=== PATIENT | female | born 1985 | race Caucasian/White ===

== ENCOUNTER 2017-02-18 07:28 | Inpatient (IN) | payer OTHER ==
[~2017-02-18] VITALS: Ht 175.3 cm; Wt 117.4 kg
[2017-02-18 07:30] VITALS: O2SAT 97
[2017-02-18] MEDS ORDERED: DIPHTH/TETANUS/ACEL PERTUSSIS (BOOSTER) 0.5 ML VIAL/PFS IM ONE ×2 (07:34→10:00)
[2017-02-18] MEDS ORDERED: GENTAMICIN 80 MG PREMIX 100 ML ONE (07:34)
[2017-02-18] MEDS ORDERED: HYDROmorphone HCL PF 1 MG/ML VIAL ONE (07:41)
[2017-02-18] MEDS ORDERED: HYDROmorphone HCL PF 2 MG/ML VIAL ONE ×2 (07:47→09:48)
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
[2017-02-18 07:59] LABS: I-STAT POTASSIUM 3.5 MMOL/L (3.5-4.9)
[2017-02-18 08:00] LABS: AUTOMATED NEUTROPHIL # 22.6 TH/MM3 (1.8-7.7); BASOPHIL # 0.1 TH/MM3 (0-0.2); BASOPHIL % 0.3 % (0.0-2.0); EOSINOPHIL # 0.2 TH/MM3 (0-0.4); EOSINOPHIL % 0.8 % (0.0-4.0); HEMATOCRIT 39.8 % (35.0-46.0); HEMO FLAGS DIFF FINAL; LYMPH % 13.7 % (9.0-44.0); LYMPHOCYTE # 3.8 TH/MM3 (1.0-4.8); MEAN CELL VOLUME 87.4 FL (80.0-100.0); MEAN CORPUSCULAR HEMOGLOBIN 29.7 PG (27.0-34.0); MEAN CORPUSCULAR HGB CONC 33.9 % (32.0-36.0); MONO % 3.7 % (0.0-8.0); NEUT % 81.5 % (16.0-70.0); PLATELET COUNT 239 TH/MM3 (150-450); RED BLOOD COUNT 4.55 MIL/MM3 (4.00-5.30); RED CELL DISTRIBUTION WIDTH 13.7 % (11.6-17.2); WHITE BLOOD COUNT 27.8 TH/MM3 (4.0-11.0)
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
[2017-02-18 08:08] LABS: INTERNATIONAL NORMALIZED RATIO 0.9 RATIO; PROTHROMBIN TIME - PATIENT 10.1 SEC (9.8-11.6)
[2017-02-18] MEDS ORDERED: IOHEXOL 350 MG/ML 10 ML VIAL (for RAD DIAG) IV ONE (08:08)
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
[2017-02-18] MEDS ORDERED: MIDAZOLAM HCL 2 MG/2 ML VIAL ONE ×2 (09:45→13:09)
[2017-02-18] MEDS ORDERED: FAMOTIDINE 20 MG/2 ML VIAL ONE (09:45)
[2017-02-18] MEDS ORDERED: GENTAMICIN SULFATE 80 MG/2 ML VIAL ONE (09:47)
[2017-02-18] MEDS ORDERED: ceFAZolin 2 GM PREMIX 50 ML ONE (09:47)
[2017-02-18] MEDS ORDERED: METOCLOPRAMIDE HCL 10 MG/2 ML VIAL ONE (09:59)
[2017-02-18] MEDS ORDERED: SUGAMMADEX SODIUM 200 MG/2 ML VIAL IV PUSH ONE ×2 (09:59)
[2017-02-18] MEDS ORDERED: fentaNYL CITRATE 250 MCG/5 ML AMP ONE ×2 (09:59→13:09)
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
--- NOTE | 2017-02-18 12:26 | PD.OP ---
cc: Chi Chavez MD Operative Report Date of Surgery: Feb 18, 2017 Preoperative Diagnosis: Left hip intertrochanteric fracture, left femoral shaft fracture, open right femoral shaft fracture Postoperative Diagnosis: Procedure: Reduction and intramedullary nail fixation left intertrochanteric hip fracture Reduction internal fixation left femoral shaft fracture Irrigation and debridement of open right femoral shaft fracture Reduction and instrumented nail fixation right femoral shaft fracture Anesthesia: Gen. Surgeon: Chi Chavez Vice President Of Development(s): NATTY Mercedes PA-C The surgical procedure was assisted by my physician hearing aid assistant. My P.A. presence was necessary throughout this case for the manipulation and positioning of the surgical extremity. My P.A. was assisting me throughout the duration of this procedure. The skill set of a physician hearing aid assistant was medically necessary to complete this procedure. During the surgical case the surgical garment assembly supervisor was working at the back table and the physician hearing aid assistant was directly assisting me. Operation and Findings: Implants used: 10 mm x [400]mm 125 Synthes TFNA troch nail, 11 mm x 420 mm Synthes antegrade femoral nail Plan of activity: 50% weightbearing bilateral lower x-rays for transfers Patient was seen and evaluated preoperatively. The patient has significant pain from bilateral femur fractures. The risk and benefits of surgery were discussed in depth with the patient to include bleeding, infection, nonunion, malunion, need for hip replacement, painful hardware, as well as medical competitions including blood clots, stroke, heart attack, and . Informed consent was obtained. Operative site was marked. Patient was brought to the operating room and placed on fracture table. IV sedation was administered by anesthesiologist. Timeout procedure was performed. The left Hip and leg were prepped with alcohol followed by DuraPrep and draped in the usual sterile fashion. IV antibiotics were given prior to incision. Procedure began with reduction of fracture. Traction was applied. Reductions were difficult because of the segmental nature of the fracture. The femoral shaft fracture was reduced first. Multiplanar fluoroscopy confirmed well aligned femoral shaft fracture. Percutaneous incisions were made around the fracture for placement of ball spike pushers. The leg was manipulated to achieve reduction. The intertrochanteric fracture also reduced into well aligned position. Excellent reduction was achieved. Fluoroscopy was used to confirm reduction. A three inch incision was made proximal to the trochanter. Subcutaneous tissue was dissected bluntly. Guidepin was placed at the tip of the trochanter and advanced into the femoral canal. The guidepin was placed across intertrochanteric fracture as well as the femoral shaft fracture Fluoroscopy confirmed appropriate guidepin placement. A opening reamer was placed over the guidepin. A long ball tipped guide pin was now placed down the femoral canal into the center of the distal femur. The nail length was now measured. Fluoroscopy confirmed appropriate guidepin placement. Flexible reamers were now passed over the guidepin to ream the intramedullary canal. The Synthes TFNA nail was attached to the insertion handle. Nail was now placed over the guidepin into the femoral canal. Fluoroscopy confirmed appropriate nail placement. A second incision was made over the lateral thigh. Cannulas were placed through the insertion handle down to the femur. Guidepin was now placed through the femoral nail into the center of the femoral head. Fluoroscopy confirmed appropriate guidepin placement. Screw length was measured. Cannulated drill was placed over the guidepin. Appropriate length lag screw was now placed. Traction was released and compression was applied. The set screw was now tightened in dynamic mode. Traction was now completely released. The femoral shaft was now manually compressed. Next, using perfect venetie ira technique two distal interlocking screws were placed. Screw holes were predrilled and screw lengths were measured. Final fluoroscopy revealed well aligned fracture with well-placed hardware. Incision was closed with 3-0 Vicryl and bar. Sterile dressings were applied. Next attention was turned towards the right leg. The right Hip and leg were prepped with alcohol followed by DuraPrep and draped in the usual sterile fashion. Procedure began irrigation and debridement of fracture. A 3 inch incision was made directly over the fracture. Subcutaneous tissues dissected with Bovie. There was a bone fragment underneath the subcutaneous tissue. This was excised. Fracture site was now cleaned with curettes. The wound was now thoroughly irrigated. Overall the wound was relatively clean with no gross contamination. Next attention was turned towards reduction of fracture. Traction was applied. The leg was manipulated to achieve reduction. Excellent reduction was achieved. Fluoroscopy was used to confirm reduction. A three inch incision was made proximal to the trochanter. Subcutaneous tissue was dissected bluntly. Guidepin was placed at the piriformis fossa and advanced into the femoral canal. Fluoroscopy confirmed appropriate guidepin placement. A opening reamer was placed over the guidepin. A long ball tipped guide pin was now placed down the femoral canal into the center of the distal femur. The fracture fragments were held in a reduced position while guidepin was placed. The nail length was now measured. Fluoroscopy confirmed appropriate guidepin placement. Flexible reamers were now passed over the guidepin to ream the intramedullary canal. The femoral nail was attached to the insertion handle. Nail was now placed over the guidepin into the femoral canal. Fluoroscopy confirmed appropriate nail placement. A second incision was made over the lateral thigh. Cannulas were placed through the insertion handle down to the femur. Using the insertion handle as a guide the proximal screw holes were drilled. Appropriate length screws were now placed. Traction was released and compression was applied. Next, using perfect venetie ira technique two distal interlocking screws were placed. Screw holes were predrilled and screw lengths were measured. Final fluoroscopy revealed well aligned fracture with well- placed hardware. Incision was closed with 3-0 PDS, 3-0 Vicryl, and bar. Sterile dressings were applied. Patient was awakened and transferred to recovery room. Chi Chavez MD Feb 18, 2017 12:26
[2017-02-18] MEDS ORDERED: PHENYLEPH/NS 1000 MCG/10 ML SYR IV ONE (12:27)
[2017-02-18] MEDS ORDERED: PROPOFOL 200 MG/20 ML AMP IV ONE (12:27)
[2017-02-18] MEDS ORDERED: NEOSTIGMINE 3 MG/3 ML SYR IV ONE (12:27)
[2017-02-18] MEDS ORDERED: LACTATED RINGER'S 1000 ML INJ 1,000 ML IV ONE (12:28)
[2017-02-18] MEDS ORDERED: SODIUM CHLORIDE 0.9% FLUSH 5 ML FLUSH IVF PRN (12:30)
[2017-02-18] MEDS ORDERED: ENOXAPARIN SODIUM 30 MG/0.3 ML SYRINGE SQ SCH (12:30)
[2017-02-18] MEDS ORDERED: diphenhydrAMINE HCL 25 MG CAP PO PRN (12:30)
--- NOTE | 2017-02-18 12:56 | RADRPT ---
EXAM DATE/TIME: 02/18/2017 11:16 [facility] COMPARISON: FEMUR LEFT (1 VW), February 18, 2017, 7:25. INDICATIONS : ORIF left femur IM francisca. MEDICAL HISTORY : None. SURGICAL HISTORY : None. ENCOUNTER: Subsequent ACUITY: 1 day PAIN SCORE: Non-responsive. LOCATION: Left femur. FINDINGS: Multiple cone down views of the left femur were obtained and demonstrate placement of an intramedulla ry francisca and locking cannulated screw transfixing the mid femoral and intertrochanteric fractures. The fracture fragments are in near anatomic alignment. CONCLUSION: Status post open rigid internal fixation.. Tony Rhodes MD on February 18, 2017 at 12:52 Board Certified Radiologist. This report was verified electronically.
[2017-02-18] MEDS: CALCIUM/VITAMIN D 250 MG/125 U TAB PO SCH ×2 (13:00→18:00)
[2017-02-18] MEDS ORDERED: *morphine SULFATE 8 MG/ML PERIprocedure ONLY ONE ×3 (13:17→14:07)
--- NOTE | 2017-02-18 13:20 | RADRPT ---
EXAM DATE/TIME: 02/18/2017 12:07 [facility] COMPARISON: FEMUR RIGHT (1 VW), February 18, 2017, 7:25. INDICATIONS : Post-op ORIF right femur fracture. MEDICAL HISTORY : None. SURGICAL HISTORY : None. ENCOUNTER: Subsequent ACUITY: 1 day PAIN SCORE: Non-responsive. LOCATION: Right femur. FINDINGS: Multiple cone down view of the femur were obtained and demonstrate placement of an intramedullary francisca transfixing the mid femur fracture. The fracture fragments are in near-anatomic alignment. CONCLUSION: Status post open rigid internal fixation. Tony Rhodes MD on February 18, 2017 at 13:14 Board Certified Radiologist. This report was verified electronically.
[2017-02-18] MEDS ORDERED: *HYDROmorphone PF 1 MG VIAL PERIprocedural Use ONLY ONE ×2 (14:20→18:32)
[2017-02-18] MEDS ORDERED: *ONDANSETRON 4 MG VIAL PERIprocedural Use ONLY ONE ×2 (17:06→21:26)
[2017-02-18] MEDS ORDERED: DIMETHICONE/OXYBENZONE/PADMIATE LIP BALM 4.25 GM TOPICAL ONE (17:26)
[2017-02-18] MEDS: ceFAZolin 2 GM PREMIX 50 ML IV SCH (17:31)
[2017-02-18] MEDS: ONDANSETRON HCL 4 MG/2 ML VIAL IVP PRN ×2 (19:51→23:01)
[2017-02-18] MEDS: SODIUM CHLORIDE 0.9% FLUSH 5 ML FLUSH IVF SCH (21:00)
[2017-02-18] MEDS: ACETAMINOPHEN/HYDROcodone 325 MG/7.5 MG TAB PO PRN (22:00)
[2017-02-18 22:27] VITALS: BP 94/61; PULSE 120; RESP 18; TEMP 97.3; O2SAT 95
[2017-02-18] MEDS: MORPHINE SULFATE 4 MG/ML INJ IV PUSH PRN (23:01)
[2017-02-19] VITALS (11 sets, daily range): BP systolic 99–123; BP diastolic 48–75; PULSE 119–141; RESP 15–18; TEMP 99.4–101.6; O2SAT 93–96
[2017-02-19] MEDS: ceFAZolin 2 GM PREMIX 50 ML IV SCH ×3 (00:57→18:41)
[2017-02-19] MEDS: MORPHINE SULFATE 4 MG/ML INJ IV PUSH PRN ×5 (02:31→21:00)
[2017-02-19] MEDS: ONDANSETRON HCL 4 MG/2 ML VIAL IVP PRN ×4 (02:31→20:59)
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
[2017-02-19 06:23] LABS: HEMATOCRIT 22.6 % (35.0-46.0); REVIEW FLAG FINAL
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
[2017-02-19] MEDS ORDERED: BEDSIDE COMMODE1 MI1 (08:15)
[2017-02-19] MEDS ORDERED: WHEEMIS3 (08:15)
[2017-02-19] MEDS: SODIUM CHLORIDE 0.9% FLUSH 5 ML FLUSH IVF SCH ×2 (09:00→20:59)
[2017-02-19] MEDS: POLYETHYLENE GLYCOL 17 GM PKG PO SCH (09:16)
[2017-02-19] MEDS: DOCUSATE SODIUM 50 MG/SENNA 8.6 MG TAB PO SCH ×2 (09:16→20:59)
[2017-02-19] MEDS: METHOCARBAMOL 500 MG TAB PO SCH ×3 (09:16→22:00)
[2017-02-19] MEDS: CALCIUM/VITAMIN D 250 MG/125 U TAB PO SCH ×3 (09:16→18:41)
[2017-02-19] MEDS: CHOLECALCIFEROL (VIT D3) 5000 UNIT CAP PO SCH (09:16)
[2017-02-19] MEDS: FAMOTIDINE 20 MG TAB PO SCH ×2 (09:17→20:59)
--- NOTE | 2017-02-19 11:07 | PD.ORT.PN ---
Subjective Subjective Remarks Pain controlled with no new complaints Objective Vitals Vital Signs Date Time Temp Pulse Resp B/P Pulse Ox O2 Delivery O2 Flow Rate FiO2 02/19/17 09:24 95 Nasal Cannula 2.00 02/19/17 08:00 99.9 139 16 111/75 96 02/19/17 04:00 99.4 119 18 121/65 93 02/19/17 04:00 Nasal Cannula 2.00 02/18/17 22:45 Nasal Cannula 2.00 02/18/17 22:27 97.3 120 18 94/61 95 02/18/17 19:00 121 17 120/69 94 Nasal Cannula 4 02/18/17 17:00 119 17 130/69 94 Nasal Cannula 4 02/18/17 16:00 98.7 117 17 117/65 93 Nasal Cannula 4 02/18/17 15:00 117 17 122/60 93 Nasal Cannula 4 02/18/17 14:30 115 19 109/64 95 Nasal Cannula 4 02/18/17 14:00 116 18 122/64 93 Nasal Cannula 4 02/18/17 13:45 114 18 123/62 94 Nasal Cannula 4 02/18/17 13:30 113 19 121/66 97 Nasal Cannula 4 02/18/17 13:15 118 11 130/65 94 Nasal Cannula 4 02/18/17 13:00 107 19 123/72 96 Nasal Cannula 4 02/18/17 12:55 99.7 122 20 135/69 97 Nasal Cannula 4 I/O 02/18/17 02/18/17 02/18/17 02/19/17 02/19/17 02/19/17 07:00 15:00 23:00 07:00 15:00 23:00 Intake Total 3500 ml 750 ml 989 ml Output Total 950 ml 300 ml 600 ml Balance 2550 ml 450 ml 389 ml Intake Oral 500 ml 240 ml IV Total 500 ml 250 ml 749 ml Other 3000 ml Output Urine Total 550 ml 300 ml 600 ml Estimated Blood Loss 400 ml # Bowel Movements 0 Result Diagram: 02/19/17 0535 Imaging Last 72 hours Impressions Pelvis X-Ray 02/18/17741 Signed Impressions: Service Date/Time: Saturday, February 18, 2017 07:25 - CONCLUSION: Intertrochanteric fracture left proximal femur. Donny Brush MD Head CT 02/18/17741 Signed Impressions: Service Date/Time: Saturday, February 18, 2017 07:47 - CONCLUSION: No acute intracranial disease. Donny Brush MD Chest X-Ray 02/18/1742 Signed Impressions: Service Date/Time: Saturday, February 18, 2017 07:25 - CONCLUSION: No acute disease. Donny Brush MD Chest CT 02/18/1742 Signed Impressions: Service Date/Time: Saturday, February 18, 2017 07:54 - CONCLUSION: 1. Extensive contusion left breast. 2. No acute intrathoracic process. Donny Brush MD Cervical Spine CT 02/18/1742 Signed Impressions: Service Date/Time: Saturday, February 18, 2017 07:47 - CONCLUSION: No fracture or subluxation. Donny Brush MD Abdomen/Pelvis CT 02/18/1742 Signed Impressions: Service Date/Time: Saturday, February 18, 2017 07:54 - CONCLUSION: 1. No acute intra-abdominal process. 2. Fracture left proximal femur intertrochanteric region 3. Status post cholecystectomy. Donny Brush MD Hand X-Ray 02/18/17 Signed Impressions: Service Date/Time: Saturday, February 18, 2017 07:25 - CONCLUSION: Fractures of the third, fourth and fifth metacarpals. Donny Brush MD Femur X-Ray 02/18/17 Signed Impressions: Service Date/Time: Saturday, February 18, 2017 12:07 - CONCLUSION: Status post open rigid internal fixation. Tony Rhodes MD Femur X-Ray 02/18/17 Signed Impressions: Service Date/Time: Saturday, February 18, 2017 11:16 - CONCLUSION: Status post open rigid internal fixation.. Tony Rhodes MD Femur X-Ray 02/18/17 0000 Signed Impressions: Service Date/Time: Saturday, February 18, 2017 07:25 - CONCLUSION: Displaced fracture mid shaft right femur with slight overlap of fragments. Donny Brush MD Femur X-Ray 02/18/17 Signed Impressions: Service Date/Time: Saturday, February 18, 2017 07:25 - CONCLUSION: 2 fractures left femur.. Donny Brush MD Objective Remarks Right lower extremity: Clean dry dressings intact. Compartments soft. No pain with knee or ankle range of motion. Distally intact sensation with good capillary refills. Strong dorsiflexion and plantar flexion of foot Left lower extremity: Clean dry dressings intact. Compartments soft. No pain with knee or ankle range of motion. Distally intact sensation with good capillary refills. Strong dorsal flexion plantar flexion of foot Assessment & Plan Assessment and Plan Right open femur and left femur fractures status post intramedullary francisca fixation POD 1 Daily dressing changes beginning POD 2 Lovenox hand to follow left metacarpal fractures Physical therapy to begin working on transfers. May bear weight bilateral lower extremities for transfers only Incentive spirometry Tony Roman Jr. Feb 19, 2017 11:07
[2017-02-19] MEDS: ENOXAPARIN SODIUM 30 MG/0.3 ML SYRINGE SQ SCH ×2 (11:15→23:15)
--- NOTE | 2017-02-19 12:57 | PD.PLAS.PN ---
Subjective Remarks The patient is lying comfortably in bed. Objective Vital Signs Date Time Temp Pulse Resp B/P Pulse Ox O2 Delivery O2 Flow Rate FiO2 02/19/17 09:24 95 Nasal Cannula 2.00 02/19/17 08:00 99.9 139 16 111/75 96 02/19/17 04:00 99.4 119 18 121/65 93 02/19/17 04:00 Nasal Cannula 2.00 02/18/17 22:45 Nasal Cannula 2.00 02/18/17 22:27 97.3 120 18 94/61 95 02/18/17 19:00 121 17 120/69 94 Nasal Cannula 4 02/18/17 17:00 119 17 130/69 94 Nasal Cannula 4 02/18/17 16:00 98.7 117 17 117/65 93 Nasal Cannula 4 02/18/17 15:00 117 17 122/60 93 Nasal Cannula 4 02/18/17 14:30 115 19 109/64 95 Nasal Cannula 4 02/18/17 14:00 116 18 122/64 93 Nasal Cannula 4 02/18/17 13:45 114 18 123/62 94 Nasal Cannula 4 02/18/17 13:30 113 19 121/66 97 Nasal Cannula 4 02/18/17 13:15 118 11 130/65 94 Nasal Cannula 4 02/18/17 13:00 107 19 123/72 96 Nasal Cannula 4 02/18/17 12:55 99.7 122 20 135/69 97 Nasal Cannula 4 I/O 02/18/17 02/18/17 02/18/17 02/19/17 02/19/17 02/19/17 07:00 15:00 23:00 07:00 15:00 23:00 Intake Total 3500 ml 750 ml 989 ml Output Total 950 ml 300 ml 600 ml Balance 2550 ml 450 ml 389 ml Intake Oral 500 ml 240 ml IV Total 500 ml 250 ml 749 ml Other 3000 ml Output Urine Total 550 ml 300 ml 600 ml Estimated Blood Loss 400 ml # Bowel Movements 0 Laboratory Tests Test 02/19/17 05:35 Hemoglobin 8.0 Hematocrit 22.6 Result Diagram: 02/19/17 0535 Exam Findings There is a splint applied to the left upper extremity. Luis Angel is wrapped very tightly. Skin is warm and well perfused. Assessment and Plan Diagnosis: (1) Closed displaced fracture of base of fourth metacarpal bone of left hand (2) Closed displaced fracture of shaft of third metacarpal bone of left hand (3) Closed displaced fracture of base of fifth metacarpal bone of left hand Assessment and Plan The patient is advised that surgical repair of the fracture of the right hand is the recommended treatment. The procedure is explained, and the patient is made aware of risks, complications, and postoperative course. She indicated that she understood and opted to proceed. Surgery will be scheduled for this afternoon. She is made NPO and consents are ordered. This is discussed the RN. Luis Angel wrap is loosened on the left arm. Melissa Grove Feb 19, 2017 12:57
[2017-02-19 15:44] LABS: REVIEW FLAG FINAL
[2017-02-19 15:45] LABS: HEMATOCRIT 20.8 % (35.0-46.0)
[2017-02-19] MEDS ORDERED: ACETAMINOPHEN 1000 MG/100 ML VIAL IV PRN (16:15)
[2017-02-19] MEDS ORDERED: SODIUM CHLOR 0.9% 250 ML INJ 250 ML IV ONE (16:15)
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
[2017-02-20] VITALS (9 sets, daily range): BP systolic 105–130; BP diastolic 51–65; PULSE 110–132; RESP 17–19; TEMP 97.2–100.1; O2SAT 93–97
[2017-02-20] MEDS: ceFAZolin 2 GM PREMIX 50 ML IV SCH ×2 (02:16→10:30)
[2017-02-20] MEDS ORDERED: CHLORHEXIDINE GLUCONATE 2 % 1 PACK (2 CLOTHS) TOPICAL PRN (03:00)
[2017-02-20] MEDS ORDERED: SODIUM CHLORID 0.9% 500 ML IV PRN (03:00)
[2017-02-20] MEDS ORDERED: INSULIN HUMAN REGULAR 1,000 UNITS/10 ML VIAL SQ PRN (03:00)
[2017-02-20] MEDS ORDERED: POVIDONE IODINE 5% (ANTISEPSIS KIT) 4 APPLICATIONS EACH NARE PRN (03:00)
[2017-02-20] MEDS ORDERED: LACTATED RINGER'S 1000 ML IV PRN (03:00)
[2017-02-20] MEDS: ACETAMINOPHEN/HYDROcodone 325 MG/7.5 MG TAB PO PRN ×2 (03:05→22:51)
[2017-02-20] MEDS: METHOCARBAMOL 500 MG TAB PO SCH ×3 (05:37→22:51)
--- NOTE | 2017-02-20 07:00 | PD.ORT.PN ---
Subjective Subjective Remarks POD 2 s/p IMN bilateral femurs s/p left hand fx doing well. pain controlled. attempted to get out of bed yesterday but got light headed planned hand surgery today Objective Vitals Vital Signs Date Time Temp Pulse Resp B/P Pulse Ox O2 Delivery O2 Flow Rate FiO2 02/20/17 03:20 99.4 130 19 105/55 94 02/20/17 01:03 99.7 126 17 112/51 94 02/20/17 00:45 99.9 132 18 106/53 94 02/20/17 00:30 99.9 132 18 106/53 94 02/19/17 21:42 99.8 130 18 114/48 94 02/19/17 21:27 99.7 132 17 120/56 95 02/19/17 21:10 95 Room Air 02/19/17 21:03 99.7 132 15 120/56 95 02/19/17 17:50 100.8 02/19/17 16:44 101.6 141 16 99/54 94 02/19/17 16:26 95 Nasal Cannula 2.00 02/19/17 12:00 100.4 129 16 123/48 96 02/19/17 09:24 95 Nasal Cannula 2.00 02/19/17 08:00 99.9 139 16 111/75 96 I/O 02/19/17 02/19/17 02/19/17 02/20/17 02/20/17 02/20/17 07:00 15:00 23:00 07:00 15:00 23:00 Intake Total 989 ml 120 ml 480 ml 0 ml Output Total 600 ml 1600 ml 1200 ml 550 ml Balance 389 ml -1480 ml -720 ml -550 ml Intake Oral 240 ml 120 ml 480 ml 0 ml IV Total 749 ml Output Urine Total 600 ml 1600 ml 1200 ml 550 ml # Bowel Movements 0 0 0 0 Result Diagram: 02/19/17 1527 Imaging Last 72 hours Impressions Pelvis X-Ray 02/18/17741 Signed Impressions: Service Date/Time: Saturday, February 18, 2017 07:25 - CONCLUSION: Intertrochanteric fracture left proximal femur. Donny Brush MD Head CT 02/18/17741 Signed Impressions: Service Date/Time: Saturday, February 18, 2017 07:47 - CONCLUSION: No acute intracranial disease. Donny Brush MD Chest X-Ray 02/18/17 0742 Signed Impressions: Service Date/Time: Saturday, February 18, 2017 07:25 - CONCLUSION: No acute disease. Donny Brush MD Chest CT 02/18/17 0742 Signed Impressions: Service Date/Time: Saturday, February 18, 2017 07:54 - CONCLUSION: 1. Extensive contusion left breast. 2. No acute intrathoracic process. Donny Brush MD Cervical Spine CT 02/18/1742 Signed Impressions: Service Date/Time: Saturday, February 18, 2017 07:47 - CONCLUSION: No fracture or subluxation. Donny Brush MD Abdomen/Pelvis CT 02/18/1742 Signed Impressions: Service Date/Time: Saturday, February 18, 2017 07:54 - CONCLUSION: 1. No acute intra-abdominal process. 2. Fracture left proximal femur intertrochanteric region 3. Status post cholecystectomy. Donny Brush MD Hand X-Ray 02/18/17 Signed Impressions: Service Date/Time: Saturday, February 18, 2017 07:25 - CONCLUSION: Fractures of the third, fourth and fifth metacarpals. Donny Brush MD Femur X-Ray 02/18/17 Signed Impressions: Service Date/Time: Saturday, February 18, 2017 12:07 - CONCLUSION: Status post open rigid internal fixation. Tony Rhodes MD Femur X-Ray 02/18/17 Signed Impressions: Service Date/Time: Saturday, February 18, 2017 11:16 - CONCLUSION: Status post open rigid internal fixation.. Tony Rhodes MD Femur X-Ray 02/18/17 0000 Signed Impressions: Service Date/Time: Saturday, February 18, 2017 07:25 - CONCLUSION: Displaced fracture mid shaft right femur with slight overlap of fragments. Donny Brush MD Femur X-Ray 02/18/17 0000 Signed Impressions: Service Date/Time: Saturday, February 18, 2017 07:25 - CONCLUSION: 2 fractures left femur.. Donny Brush MD Objective Remarks Right lower extremity: Clean dry dressings intact. Compartments soft. No pain with knee or ankle range of motion. Distally intact sensation with good capillary refills. Strong dorsiflexion and plantar flexion of foot Left lower extremity: Clean dry dressings intact. Compartments soft. No pain with knee or ankle range of motion. Distally intact sensation with good capillary refills. Strong dorsal flexion plantar flexion of foot Assessment & Plan Assessment and Plan 1) Right open femur and left femur fractures status post intramedullary francisca fixation POD 2 Daily dressing changes beginning POD 2 Lovenox hand to follow left metacarpal fractures Physical therapy to begin working on transfers. February 50% weightbear bilateral lower extremities for transfers only Incentive spirometry Jerardo Martins Feb 20, 2017 07:00
[2017-02-20 07:07] LABS: AUTOMATED NEUTROPHIL # 7.2 TH/MM3 (1.8-7.7); BASOPHIL % 0.4 % (0.0-2.0); EOSINOPHIL % 0.3 % (0.0-4.0); HEMATOCRIT 22.9 % (35.0-46.0); HEMO FLAGS DIFF FINAL; LYMPH % 17.5 % (9.0-44.0); LYMPHOCYTE # 1.7 TH/MM3 (1.0-4.8); MEAN CELL VOLUME 83.9 FL (80.0-100.0); MEAN CORPUSCULAR HEMOGLOBIN 30.1 PG (27.0-34.0); MEAN CORPUSCULAR HGB CONC 35.8 % (32.0-36.0); MONO % 7.8 % (0.0-8.0); PLATELET COUNT 107 TH/MM3 (150-450); RED BLOOD COUNT 2.73 MIL/MM3 (4.00-5.30); RED CELL DISTRIBUTION WIDTH 14.5 % (11.6-17.2); WHITE BLOOD COUNT 9.7 TH/MM3 (4.0-11.0)
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
[2017-02-20 07:36] LABS: ALKALINE PHOSPHATASE 68 U/L (45-117); ALT (GPT) 59 U/L (10-53); ANION GAP 7 MEQ/L (5-15); AST (GOT) 89 U/L (15-37); BICARBONATE 28.4 MEQ/L (21.0-32.0); BLOOD UREA NITROGEN 12 MG/DL (7-18); CHLORIDE 103 MEQ/L (98-107); GLOMERULAR FILTRATION RATE 49 ML/MIN (>89); POTASSIUM 3.5 MEQ/L (3.5-5.1); SODIUM (NA) 138 MEQ/L (136-145); TOTAL BILIRUBIN ADULT 1.1 MG/DL (0.2-1.0)
[2017-02-20] MEDS: FAMOTIDINE 20 MG TAB PO SCH ×2 (08:43→20:47)
[2017-02-20] MEDS: CHOLECALCIFEROL (VIT D3) 5000 UNIT CAP PO SCH (08:43)
[2017-02-20] MEDS: DOCUSATE SODIUM 50 MG/SENNA 8.6 MG TAB PO SCH ×2 (08:43→20:47)
[2017-02-20] MEDS: CALCIUM/VITAMIN D 250 MG/125 U TAB PO SCH ×3 (08:43→18:32)
[2017-02-20] MEDS: POLYETHYLENE GLYCOL 17 GM PKG PO SCH (08:43)
[2017-02-20] MEDS: SODIUM CHLORIDE 0.9% FLUSH 5 ML FLUSH IVF SCH ×2 (09:00→21:00)
[2017-02-20] MEDS: ACETAMINOPHEN 650 MG/20.3 ML UDC PO PRN ×2 (10:30→20:47)
[2017-02-20] MEDS ORDERED: BUPIVACAINE HCL PF 0.5% 30 ML VIAL NERV BLOCK ONE (10:50)
[2017-02-20] MEDS: ENOXAPARIN SODIUM 30 MG/0.3 ML SYRINGE SQ SCH ×2 (11:15→22:51)
--- NOTE | 2017-02-20 15:09 | HHI.PR ---
Subjective Subjective Notes Denies nausea/vomiting Pain controlled Objective Vitals/I&O Vital Signs Date Time Temp Pulse Resp B/P Pulse Ox O2 Delivery O2 Flow Rate FiO2 02/20/17 12:00 98.9 119 18 130/61 94 02/20/17 08:50 21 02/20/17 08:00 Room Air 02/19/17 16:26 2.00 Labs Laboratory Tests Test 02/19/17 02/19/17 02/20/17 15:27 16:08 05:32 Hemoglobin 7.1 8.2 Hematocrit 20.8 22.9 Blood Type A POSITIVE Crossmatch Leukocyte-Reduced Red Blood Cells Blood Bank Comment White Blood Count 9.7 Red Blood Count 2.73 Mean Corpuscular Volume 83.9 Mean Corpuscular Hemoglobin 30.1 Mean Corpuscular Hemoglobin 35.8 Concent Red Cell Distribution Width 14.5 Platelet Count 107 Mean Platelet Volume 9.3 Neutrophils (%) (Auto) 74.0 Lymphocytes (%) (Auto) 17.5 Monocytes (%) (Auto) 7.8 Eosinophils (%) (Auto) 0.3 Basophils (%) (Auto) 0.4 Neutrophils # (Auto) 7.2 Lymphocytes # (Auto) 1.7 Monocytes # (Auto) 0.8 Eosinophils # (Auto) 0.0 Basophils # (Auto) 0.0 CBC Comment DIFF FINAL Differential Comment Sodium Level 138 Potassium Level 3.5 Chloride Level 103 Carbon Dioxide Level 28.4 Anion Gap 7 Blood Urea Nitrogen 12 Creatinine 0.98 Estimat Glomerular Filtration 49 Rate Random Glucose 111 Calcium Level 7.8 Total Bilirubin 1.1 Aspartate Amino Transf 89 (AST/SGOT) Alanine Aminotransferase 59 (ALT/SGPT) Alkaline Phosphatase 68 Total Protein 5.3 Albumin 2.2 Narrative Exam GENERAL: 31-year-old well-nourished, well developed female lying in bed. SKIN: Warm and dry. HEAD: Normocephalic. ENT: No nasal bleeding or discharge. Mucous membranes pink and moist. NECK: Trachea midline. No JVD. CARDIOVASCULAR: Regular rate and rhythm. RESPIRATORY: No accessory muscle use. Lungs clear and diminished to auscultation. Breath sounds equal bilaterally. GASTROINTESTINAL: Abdomen soft, non-tender, nondistended. + BS. MUSCULOSKELETAL: Extremities without cyanosis, or edema. Left hand soft splint in place. NEUROLOGICAL: Awake and alert. Normal speech. A/P Assessment and Plan INJURIES: LEFT femur fx Open RIGHT femur fx LEFT breast contusion LEFT third, fourth and fifth metacarpal fxs 02/18: Reduction & IM nail left intertrochanteric hip fx Reduction internal fixation left femoral shaft fx I&D of open right femoral shaft fracture Reduction and IM nail right femoral shaft fx PMHx: GERD Diet: NPO for OR Pulmonary: IS, encouraged patient use Pain: [place] 7.5 1-2 tabs, IV Morphine, Robaxin. Pain controlled Activity: OOB. (50% WB BLE for transfers) W/C training. GI: Pepcid Bowel: Oriana-colace, Miralax. No BM yet. DVT: SCDs, Lovenox 30 BID OR today for left hand repair Case management consulted for discharge planning. Patient good candidate for inpatient rehab. Wes evaluating. Plan of care discussed with patient and friend at bedside. Attending Statement patient seen at bedside pt progressing well from ortho injuries case mgnt wes evaluating Attestation The exam, history, and the medical decision-making described in the above note were completed with the assistance of the mid-level provider. I reviewed and agree with the findings presented. I attest that I had a [id number] encounter with the patient on the same day, and personally performed and documented my assessment and findings in the medical record. Nimisha Law Feb 20, 2017 15:09 Leonard Serna MD March 05, 2017 13:20
[2017-02-21 00:05] VITALS: BP 119/59; PULSE 103; RESP 17; TEMP 98.6; O2SAT 96
[2017-02-21] MEDS: METHOCARBAMOL 500 MG TAB PO SCH ×3 (06:24→21:56)
--- NOTE | 2017-02-21 06:45 | PD.ORT.PN ---
Subjective Subjective Remarks Pain controlled with no new complaints Objective Vitals Vital Signs Date Time Temp Pulse Resp B/P Pulse Ox O2 Delivery O2 Flow Rate FiO2 02/21/17 00:05 98.6 103 17 119/59 96 02/20/17 21:53 18 02/20/17 20:05 100.1 115 18 118/55 97 02/20/17 19:46 Room Air 02/20/17 15:34 97.2 110 18 130/65 94 02/20/17 12:00 98.9 119 18 130/61 94 02/20/17 08:50 97 21 02/20/17 08:00 93 Room Air 02/20/17 08:00 98.5 120 18 129/56 93 I/O 02/20/17 02/20/17 02/20/17 02/21/17 02/21/17 02/21/17 07:00 15:00 23:00 07:00 15:00 23:00 Intake Total 770 ml 382 ml 0 ml Output Total 550 ml 1100 ml 1800 ml 700 ml Balance 220 ml -1100 ml -1418 ml -700 ml Intake Oral 0 ml 240 ml 0 ml IV Total 170 ml 142 ml Packed Cells 600 ml Output Urine Total 550 ml 1100 ml 1800 ml 700 ml # Bowel Movements 0 0 0 0 Result Diagram: 02/20/17 0532 02/20/17 0532 Imaging Last 72 hours Impressions Pelvis X-Ray 02/18/17741 Signed Impressions: Service Date/Time: Saturday, February 18, 2017 07:25 - CONCLUSION: Intertrochanteric fracture left proximal femur. Donny Brush MD Head CT 02/18/17741 Signed Impressions: Service Date/Time: Saturday, February 18, 2017 07:47 - CONCLUSION: No acute intracranial disease. Donny Brush MD Chest X-Ray 02/18/17741 Signed Impressions: Service Date/Time: Saturday, February 18, 2017 07:25 - CONCLUSION: No acute disease. Donny Brush MD Chest CT 02/18/17741 Signed Impressions: Service Date/Time: Saturday, February 18, 2017 07:54 - CONCLUSION: 1. Extensive contusion left breast. 2. No acute intrathoracic process. Donny Brush MD Cervical Spine CT 02/18/17741 Signed Impressions: Service Date/Time: Saturday, February 18, 2017 07:47 - CONCLUSION: No fracture or subluxation. Donny Brush MD Abdomen/Pelvis CT 02/18/17 0742 Signed Impressions: Service Date/Time: Saturday, February 18, 2017 07:54 - CONCLUSION: 1. No acute intra-abdominal process. 2. Fracture left proximal femur intertrochanteric region 3. Status post cholecystectomy. Donny Brush MD Hand X-Ray 02/18/17 0000 Signed Impressions: Service Date/Time: Saturday, February 18, 2017 07:25 - CONCLUSION: Fractures of the third, fourth and fifth metacarpals. Donny Brush MD Femur X-Ray 02/18/17 Signed Impressions: Service Date/Time: Saturday, February 18, 2017 12:07 - CONCLUSION: Status post open rigid internal fixation. Tony Rhodes MD Femur X-Ray 02/18/17 0000 Signed Impressions: Service Date/Time: Saturday, February 18, 2017 11:16 - CONCLUSION: Status post open rigid internal fixation.. Tony Rhodes MD Femur X-Ray 02/18/17 0000 Signed Impressions: Service Date/Time: Saturday, February 18, 2017 07:25 - CONCLUSION: Displaced fracture mid shaft right femur with slight overlap of fragments. Donny Brush MD Femur X-Ray 02/18/17 Signed Impressions: Service Date/Time: Saturday, February 18, 2017 07:25 - CONCLUSION: 2 fractures left femur.. Donny Brush MD Objective Remarks Right lower extremity: Clean dry dressings intact. Compartments soft. No pain with knee or ankle range of motion. Distally intact sensation with good capillary refills. Strong dorsiflexion and plantar flexion of foot Left lower extremity: Clean dry dressings intact. Compartments soft. No pain with knee or ankle range of motion. Distally intact sensation with good capillary refills. Strong dorsal flexion plantar flexion of foot Assessment & Plan Assessment and Plan 1) Right open femur and left femur fractures status post intramedullary francisca fixation POD 3 Daily dressing changes Lovenox hand to follow left metacarpal fractures Physical therapy to begin working on transfers. May 50% weightbearing bilateral lower extremities for transfers only Incentive spirometry Appointment with Dr. Chavez or PA in 2 weeks Tony Roman Jr. SELWYN Feb 21, 2017 06:44
[2017-02-21] MEDS: MORPHINE SULFATE 4 MG/ML INJ IV PUSH PRN (06:55)
[2017-02-21 08:00] VITALS: BP 124/58; PULSE 104; RESP 18; TEMP 98.9; O2SAT 96
[2017-02-21] MEDS: SODIUM CHLORIDE 0.9% FLUSH 5 ML FLUSH IVF SCH ×2 (09:00→21:00)
[2017-02-21] MEDS: POLYETHYLENE GLYCOL 17 GM PKG PO SCH (09:00)
[2017-02-21] MEDS: ACETAMINOPHEN/HYDROcodone 325 MG/7.5 MG TAB PO PRN (09:42)
[2017-02-21] MEDS: FAMOTIDINE 20 MG TAB PO SCH ×2 (09:43→21:56)
[2017-02-21] MEDS: CALCIUM/VITAMIN D 250 MG/125 U TAB PO SCH ×3 (09:43→18:45)
[2017-02-21] MEDS: DOCUSATE SODIUM 50 MG/SENNA 8.6 MG TAB PO SCH ×2 (09:43→21:56)
[2017-02-21] MEDS: CHOLECALCIFEROL (VIT D3) 5000 UNIT CAP PO SCH (09:43)
[2017-02-21] MEDS: ENOXAPARIN SODIUM 30 MG/0.3 ML SYRINGE SQ SCH ×2 (11:15→21:59)
[2017-02-21 11:29] LABS: AUTOMATED NEUTROPHIL # 8.4 TH/MM3 (1.8-7.7); BASOPHIL # 0.1 TH/MM3 (0-0.2); BASOPHIL % 0.6 % (0.0-2.0); EOSINOPHIL # 0.2 TH/MM3 (0-0.4); HEMATOCRIT 23.7 % (35.0-46.0); HEMO FLAGS DIFF FINAL; LYMPH % 14.7 % (9.0-44.0); LYMPHOCYTE # 1.6 TH/MM3 (1.0-4.8); MEAN CELL VOLUME 85.8 FL (80.0-100.0); MEAN CORPUSCULAR HEMOGLOBIN 30.2 PG (27.0-34.0); MEAN CORPUSCULAR HGB CONC 35.2 % (32.0-36.0); MONO % 6.5 % (0.0-8.0); NEUT % 76.2 % (16.0-70.0); PLATELET COUNT 136 TH/MM3 (150-450); RED BLOOD COUNT 2.77 MIL/MM3 (4.00-5.30); RED CELL DISTRIBUTION WIDTH 14.6 % (11.6-17.2); WHITE BLOOD COUNT 11.1 TH/MM3 (4.0-11.0)
[2017-02-21 11:51] LABS: BICARBONATE 26.7 MEQ/L (21.0-32.0); POTASSIUM 3.7 MEQ/L (3.5-5.1)
[2017-02-21 12:00] VITALS: BP 123/53; PULSE 102; RESP 19; TEMP 99.1; O2SAT 95
[2017-02-21] MEDS ORDERED: LACTATED RINGER'S 1000 ML INJ 1,000 ML IV ONE (12:00)
[2017-02-21] MEDS ORDERED: PROPOFOL 200 MG/20 ML AMP IV ONE (12:00)
[2017-02-21] MEDS ORDERED: ONDANSETRON HCL 4 MG/2 ML VIAL IV PUSH ONE (12:00)
[2017-02-21] MEDS ORDERED: BUPIVACAINE HCL PF 0.5% 30 ML VIAL ONE (12:55)
[2017-02-21] MEDS ORDERED: MIDAZOLAM HCL 2 MG/2 ML VIAL ONE (13:06)
[2017-02-21] MEDS ORDERED: FAMOTIDINE 20 MG/2 ML VIAL ONE (13:06)
--- NOTE | 2017-02-21 13:25 | HHI.PR ---
Subjective Subjective Notes Pain controlled Did not have hand sx yesterday, planning for today Objective Vitals/I&O Vital Signs Date Time Temp Pulse Resp B/P Pulse Ox O2 Delivery O2 Flow Rate FiO2 02/21/17 08:00 98.9 104 18 124/58 96 02/20/17 19:46 Room Air 02/20/17 08:50 21 02/19/17 16:26 2.00 Labs Laboratory Tests Test 02/21/17 10:55 White Blood Count 11.1 Red Blood Count 2.77 Hemoglobin 8.4 Hematocrit 23.7 Mean Corpuscular Volume 85.8 Mean Corpuscular Hemoglobin 30.2 Mean Corpuscular Hemoglobin 35.2 Concent Red Cell Distribution Width 14.6 Platelet Count 136 Mean Platelet Volume 9.0 Neutrophils (%) (Auto) 76.2 Lymphocytes (%) (Auto) 14.7 Monocytes (%) (Auto) 6.5 Eosinophils (%) (Auto) 2.0 Basophils (%) (Auto) 0.6 Neutrophils # (Auto) 8.4 Lymphocytes # (Auto) 1.6 Monocytes # (Auto) 0.7 Eosinophils # (Auto) 0.2 Basophils # (Auto) 0.1 CBC Comment DIFF FINAL Differential Comment Sodium Level 139 Potassium Level 3.7 Chloride Level 106 Carbon Dioxide Level 26.7 Anion Gap 6 Blood Urea Nitrogen 11 Creatinine 0.76 Estimat Glomerular Filtration 66 Rate Random Glucose 102 Calcium Level 7.7 Radiology Last Impressions Chest X-Ray 02/20/17 0000 Signed Impressions: Service Date/Time: Monday, February 20, 2017 06:22 - CONCLUSION: Underinflated examination with mild atelectasis at the bases. Glenroy Sanchez MD Pelvis X-Ray 02/18/1742 Signed Impressions: Service Date/Time: Saturday, February 18, 2017 07:25 - CONCLUSION: Intertrochanteric fracture left proximal femur. Donny Brush MD Head CT 02/18/1742 Signed Impressions: Service Date/Time: Saturday, February 18, 2017 07:47 - CONCLUSION: No acute intracranial disease. Donny Brush MD Chest CT 02/18/1742 Signed Impressions: Service Date/Time: Saturday, February 18, 2017 07:54 - CONCLUSION: 1. Extensive contusion left breast. 2. No acute intrathoracic process. Donny Brush MD Cervical Spine CT 02/18/17 0742 Signed Impressions: Service Date/Time: Saturday, February 18, 2017 07:47 - CONCLUSION: No fracture or subluxation. Donny Brush MD Abdomen/Pelvis CT 02/18/17 0742 Signed Impressions: Service Date/Time: Saturday, February 18, 2017 07:54 - CONCLUSION: 1. No acute intra-abdominal process. 2. Fracture left proximal femur intertrochanteric region 3. Status post cholecystectomy. Donny Brush MD Hand X-Ray 02/18/17 0000 Signed Impressions: Service Date/Time: Saturday, February 18, 2017 07:25 - CONCLUSION: Fractures of the third, fourth and fifth metacarpals. Donny Brush MD Femur X-Ray 02/18/17 0000 Signed Impressions: Service Date/Time: Saturday, February 18, 2017 12:07 - CONCLUSION: Status post open rigid internal fixation. Tony Rhodes MD Narrative Exam GENERAL: 31-year-old well-nourished, well developed female lying in bed. SKIN: Warm and dry. HEAD: Normocephalic. ENT: No nasal bleeding or discharge. Mucous membranes pink and moist. NECK: Trachea midline. No JVD. CARDIOVASCULAR: Regular rate and rhythm. RESPIRATORY: No accessory muscle use. Lungs clear and diminished to auscultation. Breath sounds equal bilaterally. GASTROINTESTINAL: Abdomen soft, non-tender, nondistended. + BS. MUSCULOSKELETAL: Extremities without cyanosis, or edema. Left hand soft splint in place. NEUROLOGICAL: Awake and alert. Normal speech. A/P Assessment and Plan INJURIES: LEFT femur fx Open RIGHT femur fx LEFT breast contusion LEFT third, fourth and fifth metacarpal fxs 02/18: Reduction & IM nail left intertrochanteric hip fx Reduction internal fixation left femoral shaft fx I&D of open right femoral shaft fracture Reduction and IM nail right femoral shaft fx PMHx: GERD Diet: NPO for OR Pulmonary: IS, encouraged patient use Pain: [place] 7.5 1-2 tabs, IV Morphine, Robaxin. Pain controlled Activity: OOB. (50% WB BLE for transfers) W/C training. GI: Pepcid Bowel: Oriana-colace, Miralax. No BM yet. DVT: SCDs, Lovenox 30 BID OR today for left hand repair Case management consulted for discharge planning. Patient good candidate for inpatient rehab. Wes evaluating. Plan of care discussed with patient and at bedside. Attending Statement npo for hand surgery today patient seen at bedside Attestation The exam, history, and the medical decision-making described in the above note were completed with the assistance of the mid-level provider. I reviewed and agree with the findings presented. I attest that I had a [id number] encounter with the patient on the same day, and personally performed and documented my assessment and findings in the medical record. Nimisha Law Feb 21, 2017 13:24 Leonard Serna MD March 05, 2017 13:37
[2017-02-21] MEDS ORDERED: DICLOFENAC SODIUM 37.5 MG/ML VIAL IV PUSH ONE (13:29)
[2017-02-21] MEDS ORDERED: SUGAMMADEX SODIUM 200 MG/2 ML VIAL IV PUSH ONE ×2 (13:29)
[2017-02-21] MEDS ORDERED: fentaNYL CITRATE 250 MCG/5 ML AMP ONE (13:29)
[2017-02-21] MEDS ORDERED: ceFAZolin INJ 1,000 MG VIAL IV ONE (14:11)
--- NOTE | 2017-02-21 17:11 | HHI.PR ---
Immediate Post Op Note Procedure Date: Feb 21, 2017 Pre Op Diagnosis: (1) Closed displaced fracture of shaft of third metacarpal bone of left hand (2) Closed fracture of shaft of metacarpal bone (3) Closed fracture of base of metacarpal bone Post Op Diagnosis: (1) Closed displaced fracture of shaft of third metacarpal bone of left hand (2) Closed fracture of shaft of metacarpal bone (3) Closed fracture of base of metacarpal bone Surgeon: Meghan Hudson Chauffeur(s): None Procedure: ORIF left fourth and third metacarpal bones. Closed reduction of the left fifth metacarpal base. Anesthesia: General Drains: None Tourniquet time (min at mmHg) 126 minutes at 220 mm Hg. Patient to: PACU Patient Condition: Good Implant/Devices: SEE IMPLANT LOG (if applicable) Date/Time of Procedure: SEE SURGICAL CARE RECORD Meghan Hudson MD Feb 21, 2017 17:11
[2017-02-21] MEDS ORDERED: DO NOT ADM ANY ANTICOAGULANT DRUGS PRN (17:45)
[2017-02-21 20:05] VITALS: BP 135/65; PULSE 104; RESP 17; TEMP 98.6; O2SAT 99
[2017-02-21 22:07] VITALS: O2SAT 94
[2017-02-22] VITALS (8 sets, daily range): BP systolic 115–142; BP diastolic 56–76; PULSE 77–115; RESP 17–22; TEMP 96.9–98.9; O2SAT 95–100
[2017-02-22] MEDS: ACETAMINOPHEN/HYDROcodone 325 MG/7.5 MG TAB PO PRN ×3 (04:37→22:50)
[2017-02-22] MEDS: METHOCARBAMOL 500 MG TAB PO SCH ×3 (06:00→22:49)
--- NOTE | 2017-02-22 06:47 | PD.ORT.PN ---
Subjective Subjective Remarks Pain controlled with no new complaints Objective Vitals Vital Signs Date Time Temp Pulse Resp B/P Pulse Ox O2 Delivery O2 Flow Rate FiO2 02/22/17 05:35 16 02/22/17 04:05 98.0 103 17 115/61 97 02/22/17 00:05 98.9 115 17 124/56 95 02/21/17 22:07 94 21 02/21/17 20:05 98.6 104 17 135/65 99 02/21/17 18:00 98.1 104 15 119/58 96 Nasal Cannula 2 02/21/17 17:45 101 15 123/62 95 Nasal Cannula 2 02/21/17 17:30 104 16 123/57 95 Nasal Cannula 2 02/21/17 17:15 109 15 125/65 94 Nasal Cannula 2 02/21/17 17:10 99.3 114 14 123/66 96 Nasal Cannula 2 02/21/17 12:00 99.1 102 19 123/53 95 02/21/17 08:00 98.9 104 18 124/58 96 I/O 02/21/17 02/21/17 02/21/17 02/22/17 02/22/17 02/22/17 07:00 15:00 23:00 07:00 15:00 23:00 Intake Total 0 ml 1540 ml 240 ml Output Total 700 ml 1350 ml 1250 ml Balance -700 ml 190 ml -1010 ml Intake Oral 0 ml 240 ml 240 ml IV Total 100 ml Other 1200 ml Output Urine Total 700 ml 1300 ml 1250 ml Estimated Blood Loss 50 ml # Bowel Movements 0 0 0 Result Diagram: 02/21/17 1055 02/21/17 1055 Imaging Last 72 hours Impressions Pelvis X-Ray 02/18/17741 Signed Impressions: Service Date/Time: Saturday, February 18, 2017 07:25 - CONCLUSION: Intertrochanteric fracture left proximal femur. Donny Brush MD Head CT 02/18/17741 Signed Impressions: Service Date/Time: Saturday, February 18, 2017 07:47 - CONCLUSION: No acute intracranial disease. Donny Brush MD Chest X-Ray 02/18/17741 Signed Impressions: Service Date/Time: Saturday, February 18, 2017 07:25 - CONCLUSION: No acute disease. Donny Brush MD Chest CT 02/18/17 0742 Signed Impressions: Service Date/Time: Saturday, February 18, 2017 07:54 - CONCLUSION: 1. Extensive contusion left breast. 2. No acute intrathoracic process. Donny Brush MD Cervical Spine CT 02/18/1742 Signed Impressions: Service Date/Time: Saturday, February 18, 2017 07:47 - CONCLUSION: No fracture or subluxation. Donny Brush MD Abdomen/Pelvis CT 02/18/1742 Signed Impressions: Service Date/Time: Saturday, February 18, 2017 07:54 - CONCLUSION: 1. No acute intra-abdominal process. 2. Fracture left proximal femur intertrochanteric region 3. Status post cholecystectomy. Donny Brush MD Hand X-Ray 02/18/17 0000 Signed Impressions: Service Date/Time: Saturday, February 18, 2017 07:25 - CONCLUSION: Fractures of the third, fourth and fifth metacarpals. Donny Brush MD Femur X-Ray 02/18/17 Signed Impressions: Service Date/Time: Saturday, February 18, 2017 12:07 - CONCLUSION: Status post open rigid internal fixation. Tony Rohdes MD Femur X-Ray 02/18/17 0000 Signed Impressions: Service Date/Time: Saturday, February 18, 2017 11:16 - CONCLUSION: Status post open rigid internal fixation.. Tony Rhodes MD Femur X-Ray 02/18/17 0000 Signed Impressions: Service Date/Time: Saturday, February 18, 2017 07:25 - CONCLUSION: Displaced fracture mid shaft right femur with slight overlap of fragments. Donny Brush MD Femur X-Ray 02/18/17 0000 Signed Impressions: Service Date/Time: Saturday, February 18, 2017 07:25 - CONCLUSION: 2 fractures left femur.. Donny Brush MD Objective Remarks Right lower extremity: Clean dry dressings intact. Compartments soft. No pain with knee or ankle range of motion. Distally intact sensation with good capillary refills. Strong dorsiflexion and plantar flexion of foot Left lower extremity: Clean dry dressings intact. Compartments soft. No pain with knee or ankle range of motion. Distally intact sensation with good capillary refills. Strong dorsal flexion plantar flexion of foot Assessment & Plan Assessment and Plan 1) Right open femur and left femur fractures status post intramedullary francisca fixation POD 4 Daily dressing changes Lovenox hand to follow left metacarpal fractures Physical therapy to begin working on transfers. May 50% weightbearing bilateral lower extremities for transfers only Incentive spirometry If availability for CIR exists she is orthopedically cleared Appointment with Dr. Chavez or PA in 2 weeks Tony Roman Jr. Feb 22, 2017 06:47
[2017-02-22] MEDS ORDERED: LACTULOSE SYRUP 20 GM/30 ML CUP PO ONE ×2 (08:00→14:00)
[2017-02-22] MEDS: SODIUM CHLORIDE 0.9% FLUSH 5 ML FLUSH IVF SCH ×2 (09:00→21:00)
[2017-02-22] MEDS: DOCUSATE SODIUM 50 MG/SENNA 8.6 MG TAB PO SCH ×2 (10:22→21:00)
[2017-02-22] MEDS: CALCIUM/VITAMIN D 250 MG/125 U TAB PO SCH ×3 (10:22→17:23)
[2017-02-22] MEDS: FAMOTIDINE 20 MG TAB PO SCH ×2 (10:22→23:55)
[2017-02-22] MEDS: CHOLECALCIFEROL (VIT D3) 5000 UNIT CAP PO SCH (10:22)
[2017-02-22] MEDS: POLYETHYLENE GLYCOL 17 GM PKG PO SCH (10:22)
[2017-02-22] MEDS: ENOXAPARIN SODIUM 30 MG/0.3 ML SYRINGE SQ SCH ×2 (12:11→23:55)
--- NOTE | 2017-02-22 12:30 | HHI.PR ---
Subjective Subjective Notes Pain controlled Eating well Objective Vitals/I&O Vital Signs Date Time Temp Pulse Resp B/P Pulse Ox O2 Delivery O2 Flow Rate FiO2 02/22/17 08:00 98.3 99 18 132/64 97 02/21/17 22:07 21 02/21/17 18:00 Nasal Cannula 2 Labs Laboratory Tests Test 02/18/17 02/19/17 02/20/17 02/21/17 07:30 16:08 05:32 10:55 Bedside Hemoglobin 13.6 G/DL Bedside Hematocrit 40.0 % Prothrombin Time 10.1 SEC Prothromb Time International 0.9 RATIO Ratio Activated Partial 21.0 SEC Thromboplast Time Bedside Sodium 140 MMOL/L Bedside Potassium 3.5 MMOL/L Bedside Chloride 106 MMOL/L Bedside Blood Urea Nitrogen 12 MG/DL Bedside Creatinine 0.9 MG/DL Bedside Glucose 187 MG/DL Antibody Screen NEGATIVE Blood Type A POSITIVE Crossmatch Leukocyte-Reduced Red Blood Cells Blood Bank Comment Total Bilirubin 1.1 MG/DL Aspartate Amino Transf 89 U/L (AST/SGOT) Alanine Aminotransferase 59 U/L (ALT/SGPT) Alkaline Phosphatase 68 U/L Total Protein 5.3 GM/DL Albumin 2.2 GM/DL White Blood Count 11.1 TH/MM3 Red Blood Count 2.77 MIL/MM3 Hemoglobin 8.4 GM/DL Hematocrit 23.7 % Mean Corpuscular Volume 85.8 FL Mean Corpuscular Hemoglobin 30.2 PG Mean Corpuscular Hemoglobin 35.2 % Concent Red Cell Distribution Width 14.6 % Platelet Count 136 TH/MM3 Mean Platelet Volume 9.0 FL Neutrophils (%) (Auto) 76.2 % Lymphocytes (%) (Auto) 14.7 % Monocytes (%) (Auto) 6.5 % Eosinophils (%) (Auto) 2.0 % Basophils (%) (Auto) 0.6 % Neutrophils # (Auto) 8.4 TH/MM3 Lymphocytes # (Auto) 1.6 TH/MM3 Monocytes # (Auto) 0.7 TH/MM3 Eosinophils # (Auto) 0.2 TH/MM3 Basophils # (Auto) 0.1 TH/MM3 CBC Comment DIFF FINAL Differential Comment Sodium Level 139 MEQ/L Potassium Level 3.7 MEQ/L Chloride Level 106 MEQ/L Carbon Dioxide Level 26.7 MEQ/L Anion Gap 6 MEQ/L Blood Urea Nitrogen 11 MG/DL Creatinine 0.76 MG/DL Estimat Glomerular Filtration 66 ML/MIN Rate Random Glucose 102 MG/DL Calcium Level 7.7 MG/DL Radiology Last Impressions Chest X-Ray 02/20/17 Signed Impressions: Service Date/Time: Monday, February 20, 2017 06:22 - CONCLUSION: Underinflated examination with mild atelectasis at the bases. Glenroy Sanchez MD Pelvis X-Ray 02/18/17741 Signed Impressions: Service Date/Time: Saturday, February 18, 2017 07:25 - CONCLUSION: Intertrochanteric fracture left proximal femur. Donny Brush MD Head CT 02/18/17741 Signed Impressions: Service Date/Time: Saturday, February 18, 2017 07:47 - CONCLUSION: No acute intracranial disease. Donny Brush MD Chest CT 02/18/17741 Signed Impressions: Service Date/Time: Saturday, February 18, 2017 07:54 - CONCLUSION: 1. Extensive contusion left breast. 2. No acute intrathoracic process. Donny Brush MD Cervical Spine CT 02/18/1742 Signed Impressions: Service Date/Time: Saturday, February 18, 2017 07:47 - CONCLUSION: No fracture or subluxation. Donny Brush MD Abdomen/Pelvis CT 02/18/17741 Signed Impressions: Service Date/Time: Saturday, February 18, 2017 07:54 - CONCLUSION: 1. No acute intra-abdominal process. 2. Fracture left proximal femur intertrochanteric region 3. Status post cholecystectomy. Donny Brush MD Hand X-Ray 02/18/17 Signed Impressions: Service Date/Time: Saturday, February 18, 2017 07:25 - CONCLUSION: Fractures of the third, fourth and fifth metacarpals. Donny Brush MD Femur X-Ray 02/18/17 Signed Impressions: Service Date/Time: Saturday, February 18, 2017 12:07 - CONCLUSION: Status post open rigid internal fixation. Tony Rhodes MD Narrative Exam GENERAL: 31-year-old well-nourished, well developed female lying in bed. SKIN: Warm and dry. HEAD: Normocephalic. ENT: No nasal bleeding or discharge. Mucous membranes pink and moist. NECK: Trachea midline. No JVD. CARDIOVASCULAR: Regular rate and rhythm. RESPIRATORY: No accessory muscle use. Lungs clear and diminished to auscultation. Breath sounds equal bilaterally. GASTROINTESTINAL: Abdomen soft, non-tender, nondistended. + BS. MUSCULOSKELETAL: Extremities without cyanosis, or edema. Left hand soft splint in place. NEUROLOGICAL: Awake and alert. Normal speech. A/P Assessment and Plan INJURIES: LEFT femur fx Open RIGHT femur fx LEFT breast contusion LEFT third, fourth and fifth metacarpal fxs 02/18: Reduction & IM nail left intertrochanteric hip fx Reduction internal fixation left femoral shaft fx I&D of open right femoral shaft fracture Reduction and IM nail right femoral shaft fx PMHx: GERD Diet: Regular, tolerating Pulm: IS, encouraged patient use Pain: [place] 7.5 1-2 tabs, IV Morphine, Robaxin. Pain controlled Activity: OOB. (50% WB BLE for transfers, NWB LEFT hand) W/C training. GI: Pepcid Bowel: Oriana-colace, Miralax. No BM yet. Lactulose 2 today DVT: SCDs, Lovenox 30 BID Orthopedics cleared for discharge Case management consulted for discharge planning. Patient good candidate for inpatient rehab. [facility] evaluating. Plan to discharge to [facility] when cleared by hand surgery. Plan of care discussed with patient and at bedside. Nimisha Law Feb 22, 2017 12:30
[2017-02-23] VITALS: BP 114/56; PULSE 86; RESP 20; TEMP 98.1; O2SAT 95
[2017-02-23 04:00] VITALS: BP 108/61; PULSE 88; RESP 20; TEMP 97.8; O2SAT 97
[2017-02-23 05:55] LABS: AUTOMATED NEUTROPHIL # 5.6 TH/MM3 (1.8-7.7); BASOPHIL # 0.1 TH/MM3 (0-0.2); BASOPHIL % 0.8 % (0.0-2.0); EOSINOPHIL # 0.1 TH/MM3 (0-0.4); EOSINOPHIL % 1.5 % (0.0-4.0); HEMATOCRIT 21.9 % (35.0-46.0); LYMPH % 31.5 % (9.0-44.0); MEAN CELL VOLUME 87.2 FL (80.0-100.0); MEAN CORPUSCULAR HGB CONC 34.4 % (32.0-36.0); MONO % 7.3 % (0.0-8.0); NEUT % 58.9 % (16.0-70.0); PLATELET COUNT 157 TH/MM3 (150-450); RED BLOOD COUNT 2.52 MIL/MM3 (4.00-5.30); RED CELL DISTRIBUTION WIDTH 14.9 % (11.6-17.2); WHITE BLOOD COUNT 9.5 TH/MM3 (4.0-11.0)
[2017-02-23 05:56] LABS: HEMO FLAGS AUTO DIFF
[2017-02-23 06:27] LABS: ALT (GPT) 61 U/L (10-53); ANION GAP 7 MEQ/L (5-15); AST (GOT) 112 U/L (15-37); BICARBONATE 26.8 MEQ/L (21.0-32.0); BLOOD UREA NITROGEN 19 MG/DL (7-18); CHLORIDE 107 MEQ/L (98-107); GLOMERULAR FILTRATION RATE 106 ML/MIN (>89); MAGNESIUM 2.1 MG/DL (1.5-2.5); POTASSIUM 3.2 MEQ/L (3.5-5.1); SODIUM (NA) 141 MEQ/L (136-145)
[2017-02-23 06:29] LABS: ALKALINE PHOSPHATASE 82 U/L (45-117); TOTAL BILIRUBIN ADULT 0.8 MG/DL (0.2-1.0)
[2017-02-23] MEDS: METHOCARBAMOL 500 MG TAB PO SCH (06:43)
[2017-02-23 07:13] VITALS: BP 117/66; PULSE 94; RESP 18; TEMP 97.6; O2SAT 97
[2017-02-23] MEDS: ACETAMINOPHEN/HYDROcodone 325 MG/7.5 MG TAB PO PRN (08:03)
[2017-02-23] MEDS: FAMOTIDINE 20 MG TAB PO SCH (08:04)
[2017-02-23] MEDS: CALCIUM/VITAMIN D 250 MG/125 U TAB PO SCH (08:04)
[2017-02-23] MEDS: SODIUM CHLORIDE 0.9% FLUSH 5 ML FLUSH IVF SCH (08:04)
[2017-02-23] MEDS: POLYETHYLENE GLYCOL 17 GM PKG PO SCH (08:04)
[2017-02-23] MEDS: CHOLECALCIFEROL (VIT D3) 5000 UNIT CAP PO SCH (08:04)
[2017-02-23] MEDS: DOCUSATE SODIUM 50 MG/SENNA 8.6 MG TAB PO SCH (08:05)
[2017-02-23] MEDS ORDERED: SENN1TAB PO (08:19)
[2017-02-23] MEDS ORDERED: CHOL5000 PO (08:19)
[2017-02-23] MEDS ORDERED: DIPH25CA PO ×2 (08:19→14:03)
[2017-02-23] MEDS ORDERED: OYST250T4 PO (08:19)
[2017-02-23] MEDS ORDERED: POLY17S PO ×2 (08:19→14:16)
[2017-02-23] MEDS ORDERED: ENOX30P SQ (08:19)
[2017-02-23] MEDS ORDERED: METH500T3 PO ×2 (08:19→14:14)
[2017-02-23] MEDS ORDERED: FAMO20TA2 PO ×2 (08:19→14:10)
[2017-02-23] MEDS ORDERED: MILKSUS PO ×3 (08:19→14:28)
[2017-02-23 08:29] LABS: SCAN/DIFF AUTO DIFF CONFIRMED
[2017-02-23] MEDS ORDERED: POTASSIUM CHLORIDE 10 MEQ CONTROLLED RELEASE TAB PO ONE (08:30)
[2017-02-23] MEDS: ENOXAPARIN SODIUM 30 MG/0.3 ML SYRINGE SQ SCH (09:47)
[2017-02-23] MEDS ORDERED: XARE10TA PO (11:26)
[2017-02-23] MEDS ORDERED: HYDR-3366 PO (11:30)
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
[2017-02-23 12:00] VITALS: BP 125/72; PULSE 96; RESP 18; TEMP 97.3; O2SAT 100
[2017-02-23] MEDS ORDERED: [UNRECOGNIZED DRUG - CODE] PO (13:59)
[2017-02-23] MEDS ORDERED: VITA10003 PO (14:03)
[2017-02-23] MEDS ORDERED: ENOX30IN SQ (14:05)
[2017-02-23] MEDS ORDERED: PERI8.6T PO (14:18)
[2017-02-23] MEDS ORDERED: HYDR-3583 PO (14:21)
[2017-02-23] MEDS ORDERED: MAGNESIUM HYDROXIDE SUSP 30 ML CUP PO SCH (21:00)
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
[2017-03-06] MEDS ORDERED: [UNRECOGNIZED DRUG - OTHER] (09:20)
[2017-03-06] MEDS ORDERED: WHEEMIS3 (09:20)
[2017-03-06] MEDS ORDERED: COMMODE 3-IN-11 MIS (09:20)
[2017-03-08] MEDS ORDERED: OXYC-392 PO (09:50)
[2017-03-08] MEDS ORDERED: METH500T3 PO (09:50)
[2017-03-08] MEDS ORDERED: [UNRECOGNIZED DRUG - CODE] PO (09:50)
[2017-03-08] MEDS ORDERED: VITA10003 PO (09:50)
[2017-03-08] MEDS ORDERED: PROP10TA6 PO (09:50)
[2017-03-08] MEDS ORDERED: FERR325T PO (09:50)
[2017-03-08] MEDS ORDERED: PERI8.6T PO (09:50)
[2017-03-08] MEDS ORDERED: ACET500T3 PO (09:50)
[2017-03-08] MEDS ORDERED: XARE10TA PO (09:50)
[2017-03-14] MEDS ORDERED: OXYC1CAP PO (09:58)
[2017-03-14] MEDS ORDERED: FERR325T PO (09:58)
[2017-03-14] MEDS ORDERED: ACET500T3 PO (09:58)
[2017-03-14] MEDS ORDERED: PROP10TA6 PO (09:58)
[2017-04-03] MEDS ORDERED: OXYC-395 PO (14:16)
[2017-04-03] MEDS ORDERED: DIAZ2 PO (14:16)
== END 2017-02-23 13:03 | DRG 482 ==
LOC: NEPI 07:28 → EDBD 08:07 → NEDA 08:07 → HPAC 09:50 → N06A 21:45
PROVIDERS: ADMIT Surgery; ATTEND Surgery
PROC: 0QS934Z Reposition Left Femoral Shaft with Internal Fixation Device, Percutaneous Approach (ICD-10-PCS; 2017-02-18)
PROC: 0QS834Z Reposition Right Femoral Shaft with Internal Fixation Device, Percutaneous Approach (ICD-10-PCS; 2017-02-18)
PROC: 0QS736Z Reposition Left Upper Femur with Intramedullary Internal Fixation Device, Percutaneous Approach (ICD-10-PCS; principal; 2017-02-18 10:24)
PROC: 0PSQ04Z Reposition Left Metacarpal with Internal Fixation Device, Open Approach (ICD-10-PCS; 2017-02-21)
PROC: 0PSQXZZ Reposition Left Metacarpal, External Approach (ICD-10-PCS; 2017-02-21)
DX: S72.142A Displaced intertrochanteric fracture of left femur, initial encounter for closed fracture (principal); E66.9 Obesity, unspecified; S72.351B Displaced comminuted fracture of shaft of right femur, initial encounter for open fracture type I or II; S72.352A Displaced comminuted fracture of shaft of left femur, initial encounter for closed fracture; S62.317A Displaced fracture of base of fifth metacarpal bone, left hand, initial encounter for closed fracture; S62.323A Displaced fracture of shaft of third metacarpal bone, left hand, initial encounter for closed fracture; S62.325A Displaced fracture of shaft of fourth metacarpal bone, left hand, initial encounter for closed fracture; S20.02XA Contusion of left breast, initial encounter; V00-Y99 External causes of morbidity; Y92.410 Unspecified street and highway as the place of occurrence of the external cause; K21.9 Gastro-esophageal reflux disease without esophagitis; Z68.38 Body mass index [BMI] 38.0-38.9, adult
CPT/HCPCS: 29125; 29505; 36430; 70450; 71010; 71260; 72125; 72170; 73120; 73551; 73552; 74177; 76000; 76937; 80048; 80053; 82435; 82565; 82947; 83735; 84132; 84295; 84520; 85014; 85018; 85025; 85610; 85730; 86850; 86900; 86901; 86920; 90471; 90715; 94150; 96365; 96374; 96375; 99291; C1713; C1769; G0390; J0131; J0690; J1130; J1170; J1580; J1650; J2250; J2270; J2370; J2405; J2710; J2765; J3010; J7050; J7120; P9016; Q9967